=== PATIENT | female | born 1990 | race African-American/Black ===

== ENCOUNTER 2017-03-28 14:54 | Emergency (ER) | payer SELFPAY ==
[~2017-03-28] VITALS: Ht 160 cm; Wt 67.0 kg
[~2017-03-28 14:54] MED LIST: ALBU6.7H INH; PRED20 PO; Z.0.NO CURRENT MEDS; ZITH250T PO
[2017-03-28 15:01] VITALS: BP 121/81; PULSE 83; RESP 16; TEMP 98.4; O2SAT 97
[2017-03-28] MEDS ORDERED: metroNIDAZOLE 500 MG TAB PO ONE (15:30)
[2017-03-28] MEDS: LIDOCAINE HCL 1% 50 ML VIAL XX ONE ×2 (15:30→15:53)
[2017-03-28] MEDS ORDERED: AZITHROMYCIN PWD FOR SUSP 1 GM PACKET PO ONE (15:30)
[2017-03-28] MEDS ORDERED: cefTRIAXone 250 MG VIAL IM ONE (15:30)
--- NOTE | 2017-03-28 15:36 | PD ---
HPI . Case Maker complaint Chief Complaint: Case Maker Problem/Complaint Time Seen by Provider: 15:19 Travel History International Travel<30 days: No Contact w/Intl Traveler<30days: No Traveled to known affect area: No History of Present Illness HPI 26 yo F presents with concerns for possible STD exposure. She states her partner revealed painful urination and discharge after intercourse and encouraged her to see a physician. She reports a slight increase in her vaginal secretions. She denies any urinary frequency, urgency or pain with urination. She denies any odor or any abnormal discharge including change in color or consistency. She has no pelvic pain. PFSH Past Medical History Diminished Hearing: No Integumentary: Yes (eczema ) Tetanus Vaccination: > 5 Years Influenza Vaccination: No ?: Not LMP: 03/18/17 Past Surgical History Surgical History: No Previous Surgery Social History Alcohol Use: Yes (OCC) Tobacco Use: No Substance Use: No Allergies-Medications (Allergen,Severity, Reaction): Coded Allergies: No Known Allergies (Verified Adverse Reaction, Unknown, 03/28/17) Reported Meds & Prescriptions Reported Meds & Active Scripts Active No Active Prescriptions or Reported Medications Review of Systems Except as stated in HPI: all other systems reviewed are Neg Physical Exam Narrative General: alert and oriented young female in no acute distress Eyes: pupils round and symmetric Head: normocephalic atraumatic Pulmonary: no accessory muscle use. No auditory wheezing GI: soft, non-tender abdomen Skin: warm and dry Neuro: no obvious cranial deficits Psych: mood and affect congruent Data Data Last Documented VS Vital Signs Date Time Temp Pulse Resp B/P (MAP) Pulse Ox O2 Delivery O2 Flow Rate FiO2 03/28/17 15:01 98.4 83 16 121/81 (94) 97 Orders Orders Ceftriaxone Inj (Rocephin Inj) (03/28/17 15:30) Lidocaine 1% Inj (50 Ml) (Xylocaine 1% I (03/28/17 15:30) Azithromycin Powd Pack (Zithromax Powd P (03/28/17 15:30) Metronidazole (Flagyl) (03/28/17 15:30) Ed Discharge Order (03/28/17 15:29) Lidocaine 1% Inj (Xylocaine 1% Inj) (03/28/17 15:45) MDM Medical Decision Making Medical Screen Exam Complete: Yes Emergency Medical Condition: Yes Differential Diagnosis Gonorrhea, chlamydia, trichomonas, urinary tract infection, normal vaginal secretions Narrative Course Patient presented with concerns over STD exposure after partner with symptoms encouraged patient to seek treatment. Patient declined pelvic exam in favor of prophylactic treatment. Diagnosis Primary Impression: Exposure to STD Scripts No Active Prescriptions or Reported Meds Disposition: 01 DISCHARGE HOME Condition: Stable Coreen Koch MD Mar 28, 2017 15:36
[2017-03-28] MEDS ORDERED: LIDOCAINE HCL 1% 30 ML VIAL OTHER ONE (15:45)
[2017-03-28 16:49] VITALS: BP 125/78
== END 2017-03-28 16:49 | disposition home or self-care (01) ==
LOC: PHED 14:54
DX: Z20.2 Contact with and (suspected) exposure to infections with a predominantly sexual mode of transmission (principal); L30.9 Dermatitis, unspecified
CPT/HCPCS: 96372; 99284; J0696

== ENCOUNTER 2017-04-05 23:45 | Emergency (ER) | payer SELFPAY ==
[~2017-04-05] VITALS: Ht 160 cm; Wt 68.3 kg
[2017-04-05 23:48] VITALS: BP 119/80; PULSE 80; TEMP 98.1
--- NOTE | 2017-04-06 00:09 | PD ---
HPI Chief Complaint: GI Complaint Time Seen by Provider: 00:01 Travel History International Travel<30 days: No Contact w/Intl Traveler<30days: No Traveled to known affect area: No History of Present Illness HPI The patient is a 26-year-old Suzanne female who presents to the emergency department for diarrhea. The patient states she was seen earlier this month after a possible STD exposure and was administered medications for possible infection including Rocephin, Zithromax, and Flagyl. The patient took the medications without difficulty, however, then developed diarrhea. The patient states every time she urinates she feels like she has a small amount of diarrhea which she describes as loose and watery. She denies any abdominal pain or cramping, does note mild dysuria. The patient denies any current nausea or vomiting. The patient denies any history of C. difficile. She denies any fever, chills, or sweats. The patient's symptoms are mild to moderate, possibly exacerbated after taking antibiotics, and there are no current alleviating factors. PFSH Past Medical History Diminished Hearing: No Integumentary: Yes (eczema ) Tetanus Vaccination: Unknown Influenza Vaccination: Yes ?: Not LMP: 03/19/17 Social History Alcohol Use: Yes (OCC) Tobacco Use: No Substance Use: No Allergies-Medications (Allergen,Severity, Reaction): Coded Allergies: No Known Allergies (Verified Adverse Reaction, Unknown, 04/05/17) Reported Meds & Prescriptions Reported Meds & Active Scripts Active No Active Prescriptions or Reported Medications Review of Systems Except as stated in HPI: all other systems reviewed are Neg General / Constitutional: No: Fever Cardiovascular: No: Chest Pain or Discomfort Respiratory: No: Shortness of Breath Gastrointestinal: Positive: Diarrhea, No: Nausea, Vomiting, Abdominal Pain Genitourinary: Positive: Dysuria, No: Urgency, Frequency, Pelvic Pain, Discharge, Vaginal Bleeding Physical Exam Narrative GENERAL: Awake, alert, nontoxic-appearing 26 year-old female who appears her stated age and is in no acute respiratory distress. SKIN: Focused skin assessment warm/dry. HEAD: Atraumatic. Normocephalic. EYES: Pupils equal and round. No scleral icterus. No injection or drainage. ENT: No nasal bleeding or discharge. Mucous membranes pink and moist. NECK: Trachea midline. No JVD. CARDIOVASCULAR: Regular rate and rhythm. No murmur appreciated. RESPIRATORY: No accessory muscle use. Clear to auscultation. Breath sounds equal bilaterally. GASTROINTESTINAL: Abdomen soft, non-tender, nondistended. No rebound tenderness , guarding, rigidity. No suprapubic tenderness. Pelvic: The exam was performed in the presence of a female nurse. There is no visible external rashes or lesions. Speculum examination reveals the cervix is closed. There is thick white discharge in the vaginal vault, wet prep was sent to lab. Back: No CVA tenderness. MUSCULOSKELETAL: No obvious deformities. No clubbing. No cyanosis. No edema. NEUROLOGICAL: Awake and alert. No obvious cranial nerve deficits. Motor grossly within normal limits. Normal speech. PSYCHIATRIC: Appropriate mood and affect; insight and judgment normal. Data Data Last Documented VS Vital Signs Date Time Temp Pulse Resp B/P (MAP) Pulse Ox O2 Delivery O2 Flow Rate FiO2 04/05/17 23:59 18 04/05/17 23:48 98.1 80 119/80 (93) Orders Orders Urinalysis - C+S If Indicated (04/06/17 00:01) Ed Urine Pregnancytest Poc (04/06/17 00:02) Wet Prep Profile (04/06/17 01:04) Labs Laboratory Tests Test 04/06/17 00:45 04/06/17 01:10 Urine Color YELLOW Urine Turbidity SLIGHT Urine pH 6.0 Urine Specific [place] 1.028 Urine Protein NEG mg/dL Urine Glucose (UA) NEG mg/dL Urine Ketones NEG mg/dL Urine Occult Blood NEG Urine Nitrite NEG Urine Bilirubin NEG Urine Leukocyte Esterase NEG Urine WBC 3-5 /hpf Urine Squamous Epithelial Cells 0-5 /hpf Urine Bacteria OCC /hpf Urine Mucus MOD /lpf Urine Yeast (Budding) RARE Microscopic Urinalysis Comment CULT NOT INDICATED Clue Cells (Wet Prep) NONE SEEN Vaginal Trichomonas (Wet Prep) NONE SEEN Vaginal Yeast (Wet Prep) PRESENT MDM Medical Decision Making Medical Screen Exam Complete: Yes Emergency Medical Condition: Yes Medical Record Reviewed: Yes Interpretation(s) Laboratory Tests Test 04/06/17 00:45 04/06/17 01:10 Urine Color YELLOW Urine Turbidity SLIGHT Urine pH 6.0 Urine Specific [place] 1.028 Urine Protein NEG mg/dL Urine Glucose (UA) NEG mg/dL Urine Ketones NEG mg/dL Urine Occult Blood NEG Urine Nitrite NEG Urine Bilirubin NEG Urine Leukocyte Esterase NEG Urine WBC 3-5 /hpf Urine Squamous Epithelial Cells 0-5 /hpf Urine Bacteria OCC /hpf Urine Mucus MOD /lpf Urine Yeast (Budding) RARE Microscopic Urinalysis Comment CULT NOT INDICATED Clue Cells (Wet Prep) NONE SEEN Vaginal Trichomonas (Wet Prep) NONE SEEN Vaginal Yeast (Wet Prep) PRESENT Differential Diagnosis Differential diagnosis includes medication side effect, enteritis, colitis, infectious diarrhea, inflammatory diarrhea, IBS, UTI, cervicitis, PID. Narrative Course A bedside UA test was obtained, negative, and UA was sent to lab. UA was negative. Therefore, I had a discussion with the patient regarding a pelvic examination to evaluate for possible bacterial vaginosis and/or yeast as the patient was already treated for gonorrhea, Chlamydia, and Trichomonas. After discussion it was agreed we would perform a pelvic examination with a female manager school. Pelvic exam reveals thick white discharge, wet prep is positive for Diflucan. Therefore, the patient was treated with Diflucan 150 mg orally. She is advised to follow-up with her primary physician. Return if symptoms worsen or progress. Diagnosis Primary Impression: Yeast vaginitis Patient Instructions: General Instructions Additional Instructions: Please provide the patient a copy of her results at discharge. Follow-up with your primary physician. Return if symptoms worsen or progress. Scripts No Active Prescriptions or Reported Meds Disposition: 01 DISCHARGE HOME Condition: Stable Rich Villagomez MD Apr 06, 2017 00:09
[2017-04-06 00:51] LABS: BILIRUBIN, URINE NEG (NEG); BLOOD, URINE NEG (NEG); GLUCOSE,URINE NEG (NEG); KETONE, URINE NEG (NEG); NITRITE,URINE NEG (NEG); URINE LEUKOCYTE ESTERASE NEG (NEG)
[2017-04-06 00:58] LABS: MUCUS URINE MOD /lpf (OCC); URINE COLOR YELLOW (YELLW/STRAW)
[2017-04-06 00:59] LABS: SQUAMOUS EPITHELIAL CELL URINE 0-5 /hpf (0-5)
[2017-04-06 01:00] LABS: BACTERIA, URINE OCC /hpf
[2017-04-06] MEDS ORDERED: FLUCONAZOLE SUSP 10 MG/ML 35 ML BTL PO ONE (01:30)
[2017-04-06 01:57] VITALS: BP 118/74; PULSE 72; RESP 18; O2SAT 98
== END 2017-04-06 01:59 | disposition home or self-care (01) ==
LOC: PHED 23:45
DX: B37.3 Candidiasis of vulva and vagina (principal)
CPT/HCPCS: 81001; 84703; 87210; 99283

== ENCOUNTER 2017-04-26 08:31 | Emergency (ER) | payer SELFPAY ==
[~2017-04-26] VITALS: Ht 160 cm; Wt 68.3 kg
[2017-04-26 08:33] VITALS: BP 123/79; PULSE 86; RESP 16; TEMP 98.3; O2SAT 96
[2017-04-26] MEDS ORDERED: SODIUM CHLORIDE 0.9% FLUSH 10 ML FLUSH IV FLUSH PRN (09:15)
--- NOTE | 2017-04-26 09:25 | PD ---
HPI Chief Complaint: Abdominal Pain Time Seen by Provider: 09:06 Travel History International Travel<30 days: No Contact w/Intl Traveler<30days: No Traveled to known affect area: No History of Present Illness HPI 26 year old female presents to ED with bilateral 4 out 10 lower abd pain intermittently for 1 and a half weeks associated with nausea. The patient has had a history of recent possible STD exposure which she came to ED and was treated for, following treatment she reports she developed a yeast infection and was given Flagyl. She denies any new sexual partners since visit, however she has had pain during intercourse yesterday and this morning. She is not taking control and denies use of condoms. She is unsure of her LMP which is irregular for her normally. She has been having intermittent dysuria and denies increase in frequency, urgency or hematuria. At home test yesterday reported as normal, denies vaginal discharge. Risk Factors:sexually active, no control method Modifying Factors:[None] Associated sign and symptoms: lower abd pain, pain with intercourse, nausea. PFSH Past Medical History Diminished Hearing: No Integumentary: Yes (eczema ) Influenza Vaccination: Yes ?: Unknown LMP: UNKNOWN-IRREGULAR Social History Alcohol Use: Yes (OCC) Tobacco Use: No Substance Use: No Allergies-Medications (Allergen,Severity, Reaction): Coded Allergies: No Known Allergies (Verified Adverse Reaction, Unknown, 04/26/17) Reported Meds & Prescriptions Reported Meds & Active Scripts Active No Active Prescriptions or Reported Medications Review of Systems Except as stated in HPI: all other systems reviewed are Neg Physical Exam Narrative GENERAL: Well developed female in ED, no acute distress. SKIN: Warm and dry. HEAD: Atraumatic. Normocephalic. EYES: Pupils equal and round. No scleral icterus. No injection or drainage. ENT: No nasal bleeding or discharge. Mucous membranes pink and moist. NECK: Trachea midline. No JVD. CARDIOVASCULAR: Regular rate and rhythm. RESPIRATORY: No accessory muscle use. Clear to auscultation. Breath sounds equal bilaterally. GASTROINTESTINAL: Abdomen soft, non-tender, nondistended. Hepatic and splenic margins not palpable. GENITOURINARY: Normal external genitalia without lesions or erythema. Vaginal vault without blood or drainage. Cervical os was closed without drainage. No cervical motion tenderness. Uterus nontender and nonenlarged. Bilateral adnexa nontender without masses MUSCULOSKELETAL: Extremities without clubbing, cyanosis, or edema. No obvious deformities, no CVA tenderness. NEUROLOGICAL: Awake and alert. No obvious cranial nerve deficits. Motor grossly within normal limits. Five out of 5 muscle strength in the arms and legs. Normal speech. PSYCHIATRIC: Appropriate mood and affect; insight and judgment normal. Data Data Last Documented VS Vital Signs Date Time Temp Pulse Resp B/P (MAP) Pulse Ox O2 Delivery O2 Flow Rate FiO2 04/26/17 08:33 98.3 86 16 123/79 (94) 96 Orders Orders Urinalysis - C+S If Indicated (04/26/17 09:06) Iv Access Insert/Monitor (04/26/17 09:06) Ecg Monitoring (04/26/17 09:06) Oximetry (04/26/17 09:06) Sodium Chloride 0.9% Flush (Ns Flush) (04/26/17 09:15) Ed Urine Pregnancytest Poc (04/26/17 09:06) Gc And Chlamydia Pcr (04/26/17 09:06) Wet Prep Profile (04/26/17 09:06) Azithromycin Powd Pack (Zithromax Powd P (04/26/17 10:45) Ceftriaxone Inj (Rocephin Inj) (04/26/17 10:45) Lidocaine 1% Inj (50 Ml) (Xylocaine 1% I (04/26/17 10:45) Metronidazole (Flagyl) (04/26/17 10:45) Fluconazole (Diflucan) (04/26/17 10:45) Lidocaine Pf 1% Inj (Xylocaine-Mpf 1% In (04/26/17 10:50) Ed Discharge Order (04/26/17 11:08) Labs Laboratory Tests Test 04/26/17 09:40 04/26/17 09:58 Clue Cells (Wet Prep) NONE SEEN Vaginal Trichomonas (Wet Prep) NONE SEEN Vaginal Yeast (Wet Prep) NONE SEEN Urine Collection Type CLEAN CATCH Urine Color YELLOW Urine Turbidity CLEAR Urine pH 7.0 Urine Specific [place] 1.026 Urine Protein NEG mg/dL Urine Glucose (UA) NEG mg/dL Urine Ketones NEG mg/dL Urine Occult Blood NEG Urine Nitrite NEG Urine Bilirubin NEG Urine Leukocyte Esterase NEG Urine Squamous Epithelial Cells 0-5 /hpf Urine Amorphous Sediment FEW Microscopic Urinalysis Comment CULT NOT INDICATED Urine Collection Time 0958 MDM Medical Decision Making Medical Screen Exam Complete: Yes Emergency Medical Condition: Yes Medical Record Reviewed: Yes Interpretation(s) Laboratory Tests Test 04/26/17 09:40 04/26/17 09:58 Differential Diagnosis UTI versus cervicitis versus PID versus vaginitis Narrative Course Wet prep and UA did not show any signs of UTI or infection. GC is pending. Her urine test is negative. Abdomen is fairly benign and I do not suspect an acute intra-abdominal process. Patient later confides to me that she was worried she could have been reexposed, is sexually active without condoms. At this point, she was empirically treated with antibiotics considering her stated worry of exposure. She should practice safe sex with condoms until cultures come back. Follow-up with [facility] regarding any ongoing pain. Return for worsening of symptoms as needed. The plan has been discussed with her and she states understanding. Diagnosis Primary Impression: Pelvic and perineal pain Scripts No Active Prescriptions or Reported Meds Disposition: 01 DISCHARGE HOME Condition: Stable SoontharoKelsie garcia MD Apr 26, 2017 09:25
[2017-04-26 10:04] LABS: BILIRUBIN, URINE NEG (NEG); BLOOD, URINE NEG (NEG); GLUCOSE,URINE NEG (NEG); KETONE, URINE NEG (NEG); NITRITE,URINE NEG (NEG); URINE LEUKOCYTE ESTERASE NEG (NEG)
[2017-04-26 10:12] LABS: URINE COLOR YELLOW (YELLW/STRAW)
[2017-04-26 10:13] LABS: AMORPHOUS SEDIMENT, URINE FEW; SQUAMOUS EPITHELIAL CELL URINE 0-5 /hpf (0-5)
[2017-04-26] MEDS ORDERED: cefTRIAXone 250 MG VIAL IM ONE (10:45)
[2017-04-26] MEDS ORDERED: AZITHROMYCIN PWD FOR SUSP 1 GM PACKET PO ONE (10:45)
[2017-04-26] MEDS ORDERED: FLUCONAZOLE 100 MG TAB PO ONE (10:45)
[2017-04-26] MEDS ORDERED: metroNIDAZOLE 500 MG TAB PO ONE (10:45)
[2017-04-26] MEDS ORDERED: LIDOCAINE HCL 1% 50 ML VIAL IM ONE (10:45)
[2017-04-26] MEDS ORDERED: LIDOCAINE HCL 1% PF 30 ML VIAL ONE (10:50)
[2017-04-26 11:36] VITALS: BP 118/78
== END 2017-04-26 11:37 | disposition home or self-care (01) ==
LOC: PHED 08:31
DX: R10.2 Pelvic and perineal pain (principal)
CPT/HCPCS: 81001; 84703; 87210; 87491; 87591; 96372; 99284; J0696